=== PATIENT | male | born 1970 | race Caucasian/White ===

== ENCOUNTER 2021-11-08 21:33 | Emergency (ER) | payer MEDICARE ==
[~2021-11-08] VITALS: Ht 180.3 cm; Wt 75.0 kg
[2021-11-08 21:48] VITALS: BP 168/119
[2021-11-08] MEDS ORDERED: AMLO5TAB88 MT (22:02)
== END 2021-11-08 22:03 | disposition home or self-care (01) ==
LOC: ER 21:33
DX: I10 Essential (primary) hypertension (principal); F10.10 Alcohol abuse, uncomplicated; F41.9 Anxiety disorder, unspecified; F12.10 Cannabis abuse, uncomplicated; Y90.9 Presence of alcohol in blood, level not specified; F17.210 Nicotine dependence, cigarettes, uncomplicated; Z91.14 Patient's other noncompliance with medication regimen
CPT/HCPCS: 99281

== ENCOUNTER 2022-03-19 04:02 | Emergency (ER) | payer MEDICARE, OTHER ==
[~2022-03-19] VITALS: Ht 177.8 cm; Wt 73.0 kg
[~2022-03-19 04:02] MED LIST: AMLO5TAB88 MT
[2022-03-19 04:11] VITALS: BP 155/99
== END 2022-03-19 09:56 | disposition left against medical advice (07) ==
LOC: ER 04:02
DX: Z53.21 Procedure and treatment not carried out due to patient leaving prior to being seen by health care provider (principal)